=== PATIENT | male | born 1980 | race Caucasian/White ===

== ENCOUNTER 2022-07-14 20:37 | Emergency (ER) | payer MEDICAID | END 2022-07-14 21:10 | disposition home or self-care (01) | LOC: JP.ED 20:37 | DX: K08.89 Other specified disorders of teeth and supporting structures (principal); Z88.0 Allergy status to penicillin | CPT/HCPCS: 99282 ==

== ENCOUNTER 2024-12-06 10:06 | Emergency (ER) | payer MEDICAID | END 2024-12-06 11:32 | disposition home or self-care (01) | LOC: JP.ED 10:06 | DX: S76.911A Strain of unspecified muscles, fascia and tendons at thigh level, right thigh, initial encounter (principal); I10 Essential (primary) hypertension; Z88.0 Allergy status to penicillin; Z79.899 Other long term (current) drug therapy; Z79.84 Long term (current) use of oral hypoglycemic drugs; Z79.01 Long term (current) use of anticoagulants; X50.0XXA Overexertion from strenuous movement or load, initial encounter; Y93.89 Activity, other specified | CPT/HCPCS: 93971-26; 93971-RT; 99282; 99283 ==